=== PATIENT | female | born 1995 | race Caucasian/White ===

== ENCOUNTER 2021-05-17 21:40 | Inpatient (IN) | payer OTHER, BC, SELFPAY ==
[2021-05-17 22:11] VITALS: BMI 31.5
--- NOTE | 2021-05-17 22:13 | LDADM ---
This patient, Bettye Rodriguez, was admitted to Labor/Delivery/Recovery 107 on 05/17/21 at 21:40. Plans for labor, pain management and were discussed with patient. Patient/family oriented to hospital policies and general routines including ID bracelet, bed and alarms, visiting hours, pain management, procedures, bathroom and other care routines, personal items, smoking policy, room service/diet and guest tray routines, security routines, and visiting hours. Patient/Family are encouraged to report perceived risks to care and to ask questions if they do not understand what they are told or what they should do. See OBIX for further documentation.
[2021-05-17 22:38] VITALS: BP 132/87; PULSE 87
[2021-05-17 22:42] LABS: Basophils Percent Auto 0.3 % (0.2-1.2); Eosinophils Absolute Auto 0.1 K/mm3 (0-0.3); Hematocrit 35.4 % (37.0-47.0); Hemoglobin 11.9 g/dL (12.0-15.0); Immature Granulocyte Absolute 0.05 K/mm3 (0.00-0.031); Immature Granulocyte Percent A 0.4 % (0-0.5); Immature Platelet Fraction Pct 22.9 % (0.9-11.2); Lymphocytes Absolute Auto 3.23 K/mm3 (0.9-3.2); Lymphocytes Percent Auto 28.2 % (18.3-44.2); Mean Corpuscular HGB Conc 33.6 g/dl (32-36); Mean Corpuscular Hemoglobin 31.6 pg (26-34); Mean Corpuscular Volume 94.1 fl (80-100); Mean Platelet Volume 12.9 fl (7.4-10.4); Monocytes Absolute Auto 0.7 K/mm3 (0.1-0.6); Neutrophils Absolute Auto 7.3 K/mm3 (1.3-6.7); Neutrophils Percent Auto 64.1 % (45.5-73.1); Platelet Count Result 153 k/mm3 (150-375); Red Blood Count 3.76 M/mm3 (4.2-5.4); Red Cell Distribution Width 13.4 % (11.5-14.5); White Blood Count 11.5 K/mm3 (4.5-10.0)
[2021-05-17 22:46] VITALS: BP 129/88; PULSE 91
[2021-05-17] MEDS: miSOPROStol 25 MCG TABLET VAGINAL (22:48)
[2021-05-17 23:00] VITALS: TEMP 36.4
[2021-05-17 23:05] VITALS: BP 130/85; PULSE 74
[2021-05-17 23:31] VITALS: BP 128/87; PULSE 69
[2021-05-18] VITALS (116 sets, daily range): BP systolic 114–153; BP diastolic 64–102; PULSE 54–163; RESP 16–18; TEMP 36.1–37.3; O2SAT 98–100
[2021-05-18] MEDS: miSOPROStol 25 MCG TABLET VAGINAL (02:48)
--- NOTE | 2021-05-18 06:16 | WPDANESEPP ---
Anes - Eval Pre Procedure Procedure: labor epidural Date/Time: 05/18/21 06:16 Surgeon: sonny Pre Op Diagnosis: IOL Patient Data Age: 25 Gender: F Height: 1.57 m Weight: 78.25 kg Last Vital Signs Temp 36.1 C L 05/18/21 02:51 Pulse 55 L 05/18/21 06:01 BP 136/94 H 05/18/21 06:01 Allergies Allergy/AdvReac Type Severity Reaction Status Date / Time No Known Allergies Allergy Verified 04/29/21 13:44 Home Medications Medication Instructions Recorded Confirmed Type PNV cmb#95-ferrous fumarate-FA 1 tablet PO DAILY 04/29/21 04/29/21 History [] Laboratory Tests 05/17/21 05/17/21 05/17/21 22:32 22:32 22:32 WBC 11.5 K/mm3 H K/mm3 (4.5-10.0) RBC 3.76 M/mm3 L M/mm3 (4.2-5.4) Hgb 11.9 g/dL L g/dL (12.0-15.0) Hct 35.4 % L % (37.0-47.0) MCV 94.1 fl fl (80-100) MCH 31.6 pg pg (26-34) MCHC 33.6 g/dl g/dl (32-36) RDW 13.4 % % (11.5-14.5) Plt Count 153 k/mm3 k/mm3 (150-375) MPV 12.9 fl H fl (7.4-10.4) Immature Gran % (Auto) 0.4 % % (0-0.5) Neut % (Auto) 64.1 % % (45.5-73.1) Lymph % (Auto) 28.2 % % (18.3-44.2) [place] % (Auto) 6.0 % % (2.6-8.5) Eos % (Auto) 1.0 % % (0-4.4) Baso % (Auto) 0.3 % % (0.2-1.2) Lymph # (Auto) 3.23 K/mm3 H K/mm3 (0.9-3.2) [place] # (Auto) 0.7 K/mm3 H K/mm3 (0.1-0.6) Eos # (Auto) 0.1 K/mm3 K/mm3 (0-0.3) Baso # (Auto) 0.0 K/mm3 K/mm3 (0.0-0.1) Abs Immat Gran (auto) 0.05 K/mm3 H K/mm3 (0.00-0.031) Absolute Neuts (auto) 7.3 K/mm3 H K/mm3 (1.3-6.7) Absolute Nucleated RBC 0.0 K/mm3 K/mm3 (0.0-0.012) Nucleated RBC % 0.0 % % (0.0-0.2) % Immature Plt Fraction 22.9 % H % (0.9-11.2) RPR Pending Blood Type A Positive Antibody Screen Negative Patient hx anesthesia problems: none Family hx anesthesia problems: none PMFSH Family History Family History (Updated 04/29/21 @ 13:45 by Hakeem Hutchins RN) Father Hypertension Social History Social History Smoking status: Never smoker Second hand tobacco smoke exposure: No Substance use: never Gender identity (if verbalized by the patient): Female Sexual Orientation (if Verbalized by the Patient): Straight or Heterosexual Spiritual care concerns: No Exam Day of Procedure 05/18/21 06:16
[2021-05-18] MEDS: LACTATED RINGERS 1,000 ML 125 ML IV CONT ×2 (07:00→09:41)
[2021-05-18] MEDS: OXYTOCIN 30 UNITS/NS 500 ML 30 UNITS/500 ML BAG 6 UNITS IV CONT (07:01)
--- NOTE | 2021-05-18 07:02 | WPDHPUPDATE1 ---
History and Physical Update Update Date/Time: 05/18/21 07:02 25 yo G1 at 39w2d who presents for elective IOL. She endorses good FM. She denies any regular contractions, vaginal bleeding or leakage of fluid. Her has been uncomplicated thus far. History and Physical has been reviewed, including an updated exam of the patient. There are NO changes in the patient's condition. Risks, benefits, and alternatives have been discussed and questions answered. Patient agrees to proceed with procedure. 25 at 39w2d who presents for IOL admit to L&D routine admission orders Rh+ GBS neg cvx 1cm FHT cat 1 plan for cytotec IOL continuous EFM
[2021-05-18] MEDS: fentaNYL CITRATE INJ (*CRX) 100 MCG/2 ML VIAL 50 MCG IV PUSH (09:25)
--- NOTE | 2021-05-18 12:18 | PM.OBPRVD ---
OB - Delivery Note Procedure Procedure: Patient pushed for a spontaneous vaginal delivery. The head and anterior shoulder were delivered. At this time, the father of the baby was able to deliver the rest of the fetus. The fetus was delivered atraumatically and placed on the maternal abdomen. The cord was clamped and cut after 1 minute of life. The cord was double clamped and cut and a segment of cord was collected for cord gases. Cord blood was collected for blood type and Coomb's testing. The placenta delivered spontaneously and was noted to be intact. The perineum was inspected and there was a 1st degree perineal laceration as well as bilateral lena-urethral lacerations. The lacerations were repaired with 3-0 vicryl in the usual fashion. The uterus was firm and good hemostasis was noted. The patient and fetus were stable in the delivery room. Intrapartal events: None Induction method: per misoprostol protocol Delivery augmentation: pitocin Delivery monitor: external FHT and internal uterine Route of delivery: Episiotomy description: None Laceration Description: Periurethral and Perineal - 1st Degree Delivery repair: vicryl Specimen: No Quantitative Blood Loss (ml): 250 Anesthesia type: Epidural Disposition: floor () Complications: No immediate complications Baby Date of : 05/18/21 Time of : 12:05 Weeks of gestation at delivery: 39 Infant gender: Male Weight (pounds): 6 Weight (ounces): 14 presentation: vertex position: Right Occiput Anterior Placenta delivery description: Spontaneous cord vessel description: 3 Vessels score one minute: 8 score five minutes: 9
[2021-05-18] MEDS: OXYTOCIN 30 UNITS/NS 500 ML 30 UNITS/500 ML BAG 125 UNITS IV CONT (12:40)
[2021-05-18] MEDS: WITCH HAZEL 40 PADS 1 PAD TOPICAL (14:23)
[2021-05-18] MEDS: BENZOCAINE 20% AER SPR (*SP) 56 GM CAN 1 SPRAY TOPICAL (14:23)
[2021-05-19] VITALS: BP 110/72; PULSE 68; RESP 16; TEMP 36.8; O2SAT 99
[2021-05-19 04:30] VITALS: BP 120/79; PULSE 58; RESP 18; TEMP 36.3; O2SAT 100
[2021-05-19 05:17] LABS: Hematocrit 35.4 % (37.0-47.0); Hemoglobin 11.9 g/dL (12.0-15.0)
--- NOTE | 2021-05-19 07:31 | WPDANLDPN2 ---
Anes-Prog Note L&D Date/Time: 05/19/21 07:31 Comfortable throughout: labor Neuraxial method: epidural Epidural/Spinal procedure site: clean & non-tender Neuro status: Neuro function grossly intact. Cardiovascular status: normal Respiratory status: normal Airway patency: baseline Post-Op hydration status: normal Vital Signs: Last Vital Signs Temp 97.3 F L 05/19/21 04:30 Pulse 58 L 05/19/21 04:30 Resp 18 05/19/21 04:30 BP 120/79 05/19/21 04:30 Pulse Ox 100 05/19/21 04:30 Pain score (VAS): 1 I/O: Intake & Output 05/18/21 05/18/21 05/19/21 15:59 23:59 07:59 Intake Total 1500 Output Total 250 Balance 1250 Post-procedural complaints: none Patient feedback: Patient satisfied with anesthetic care.
--- NOTE | 2021-05-19 07:43 | PM.OBPNVD ---
OB - PN: Subj Subjective Date/time seen: 05/19/21 07:43 Patient comments: no complaints, pain well controlled and tolerating diet [place] feeding status: exclusively breast feeding Narrative: patient doing well this AM. No complaints. Pain is well controlled. She reports minimal bleeding. She is ambulating and voiding without difficulty. She is tolerating PO. She denies N/V, fever, chills. OB - PN: Obj Data Labs CBC & Chem 7: 05/19/21 04:42 Labs: Laboratory Results - last 24 hr 05/19/21 04:42 Hgb 11.9 L Hct 35.4 L OB - PN A/P Plan day: 1 Plan: routine care Comments: patient doing well H/H stable plan for infant circumcision today. Risks, benefits, alternatives discussed. Consent obtained continue routine care Time Spent With Patient Time: Total time spent is greater than 50% in coordination of care (as documented) at patient's floor/unit and/or counseling patient: Time with patient: less than 15 minutes Review of Systems Review of Systems: All systems reviewed & are unremarkable except as noted in HPI and below Exam Const: General: comfortable and no acute distress Resp: Effort & Inspection: normal respiratory effort Cardio: Rate: regular rate GI: GI Palp: Yes Soft to palpation and No Tenderness to palpation present (GI) Auscultation: normal bowel sounds Other: fundus firm and below umbilicus. Psych: Affect: normal affect
--- NOTE | 2021-05-19 07:44 | PM.OBDSVD ---
DS: Admitting Diagnosis Admitting Diagnosis intrauterine at term OB - DS: Summary OB Procedures : None OB Procedures Intrapartum: Spontaneous Vag Delivery OB Procedures: : None Status at Discharge Functional status at discharge: independent ambulation Overall status at discharge: patient is back to baseline Time Spent with Patient Time attestation: Total time spent providing and/or coordinating discharge services: Time spent: Less than 30 minutes Exam Const: General: comfortable and no acute distress Resp: Effort & Inspection: normal respiratory effort Auscultation: clear to auscultation bilaterally Cardio: Rate: regular rate GI: GI Palp: Yes Soft to palpation Auscultation: normal bowel sounds Other: Fundus firm below umbilicus Psych: Appearance: grossly normal Mental Status: mental status grossly normal Affect: normal affect DS: Data Data Completed and Pending Labs on day of discharge: Labs from last 24 hours 05/19/21 04:42 Hgb 11.9 L Hct 35.4 L Discharge Plan Discharge Discharging Clinician: Jeff Houston Patient Disposition: Home, Self-Care Activity: as tolerated and pelvic rest Diet: regular Patient Instructions: Antibiotic Form, Vaginal Delivery (DC) Stand Alone Forms: General Discharge Information Follow-up/Referrals: Jeff Houston MD [Physician] - 4 Weeks Discharge Medications: New ibuprofen 600 mg Tablet 600 mg PO Q6H PRN (Reason: Cramping) Qty: 30 RF: 0 Preparation H (Witch Priscilla) 50 % Pads, Medicated 1 pad topical PRN PRN (Reason: Perineal Discomfort) Qty: 12 RF: 0 acetaminophen [Mapap (acetaminophen)] 325 mg Tablet 650 mg PO Q6H PRN (Reason: Mild Pain (1-3) Or Headache) Qty: 30 RF: 0 Continued PNV cmb#95-ferrous fumarate-FA [] 28 mg iron- 800 mcg Tablet 1 tablet PO DAILY RF: 0 Date of admission: 05/17/21 21:40 Primary Care Provider: FlorinaTone Admitting Provider: Jeff Houston Attending physician on admission: Jeff Houston Condition: Stable
[2021-05-19 09:00] VITALS: PULSE 90; RESP 18; O2SAT 99
[2021-05-19] MEDS: IBUPROFEN 600 MG TABLET PO (09:00)
[2021-05-19] MEDS: MULTIVIT/MIN/PREN/FOL AC/IRON TABLET 1 TAB PO (09:00)
--- NOTE | 2021-05-19 09:15 | PC.NURSE ---
Mother called out for assist with feeding, reporting is sleepy and not waking for latch. Infant has been sleepy since 0100 with short periods of nursing. Parents are concerned with feeding status. Mother states her original plan was to pump and bottle feed, she felt was latching well and decided to breastfeed. Assured mother sleepiness normal for the first few days. Infant is able to freely thrust tongue past gum ridge and flange both lips. Skin is intact on both nipples, no redness and bruising noted. Discussed the near term and possible precautions of weak latch, sleepy feedings, needing to wake each feeding, inability to maintain latch and poor milk transfer which increases chance for increased weight loss, jaundice and low milk supply. Stressed the importance of adequate breast stimulation by pumping, self-expression and skin to skin. Reviewed feeding cues, frequencies, duration of feedings, feeding elimination flow sheet, and signs of adequate intake. Demonstrated stimulation techniques to wake for feeding. Assisted with infant to breast. Reviewed positioning/alignment in cross cradle, holding breast in ?U? hold and guided asymmetrical latch on. Discussed rational for each. Infant able to latch correctly. Reviewed signs of a correct latch, effective nursing and suck swallow ratio. nursed sleepily for short bursts with steady draws followed with long pausing. Reviewed the difference of effective vs ineffective nursing. Discussed is making good efforts and not effectively or making adequate milk transfer. Suggested mother stimulate while feeding to increase stimulation, increase intake and to assist with maintaining deep latch. Infant would respond to stimulation with short bursts of nursing. nursed aprox 10 minutes with a 25 minute attempt. Nipple care reviewed of lanolin after feedings, warm compresses as needed. Feeding plan will be to supplement 20 mls formula and mother will initiate pumping.
[2021-05-19 09:19] LABS: Rapid Plasma Reagin Non-Reactive (NonReactive)
[2021-05-19 09:50] VITALS: BP 126/82; PULSE 90; RESP 18; TEMP 36.4; O2SAT 99
--- NOTE | 2021-05-19 13:30 | PC.NURSE ---
Reviewed feeding cues, frequencies, duration of feedings, feeding elimination flow sheet, and signs of adequate intake. Demonstrated stimulation techniques to wake infant for feeding. Assisted with infant to breast. Reviewed positioning/alignment in cross cradle, holding breast in ?U? hold and guided asymmetrical latch on. Discussed rational for each. able to latch correctly. Reviewed signs of a correct latch, effective nursing and suck swallow ratio. Infant nursed sleepily for short bursts with steady draws followed with long pausing. Reviewed the difference of effective vs ineffective nursing. Discussed infant is making good efforts and not effectively or making adequate milk transfer. Suggested mother stimulate while feeding to increase stimulation, increase intake and to assist with maintaining deep latch. would respond to stimulation with short bursts of nursing. nursed aprox 5 minutes with a 20 minute attempt. Nipple care reviewed of lanolin after feedings, warm compresses as needed. Feeding plan will be to supplement 20 mls formula and mother pumping.
[2021-05-19] MEDS: TETANUS,DIPHTHERIA,AC PERTUSSIS ADULT (0.5 ML) BOOSTRIX IM (16:42)
[2021-05-19 18:45] VITALS: BP 119/79; PULSE 63; RESP 16; RESP 18; TEMP 36.6; O2SAT 99
[2021-05-20 07:40] VITALS: BP 130/75; PULSE 67; RESP 18; TEMP 36.6; O2SAT 100
[2021-05-20] MEDS: IBUPROFEN 600 MG TABLET PO (07:57)
[2021-05-20] MEDS: MULTIVIT/MIN/PREN/FOL AC/IRON TABLET 1 TAB PO (07:59)
[2021-05-20 08:00] VITALS: PULSE 63; RESP 16; O2SAT 99
--- NOTE | 2021-05-20 09:17 | PC.NURSE ---
Patient viewed the discharge video Mother & Baby Care, The First Two Weeks . Patient was given the opportunity and encouraged to ask questions. Patient verbalized understanding of information shared and has been given the mother/baby guide for home reference.
--- NOTE | 2021-05-20 09:45 | PC.NURSE ---
Consult with pt., mother states she has decided to pump and bottle feed. Worked with mother and her [employer] double electric pump for home use. Reviewed breast pump care and usage, pumping schedule, nipple care, and collection and storage of breast milk. Encouraged [id number], breast massage and manual expression to stimulate supply. Assessed patient for correct flange size, placement and draw. Patient verbalizes and demonstrates understanding of instructions. is bottle feeding as much as he desires per feeding without issue. Mother is feeding as required and waking infant to feed if needed. is currently meeting outcomes for weight, output, jaundice and feeding frequencies. Mother states she feels confident to continue current feeding plan at home. Reviewed transition to breast milk, signs of adequate intake, and engorgement/relief. Instructed to call ICP if intake/output less than required. Reviewed regular medications mother is taking. Information provided per Jenna. Reviewed community resources on the [facility] website and in the Mom/Baby guide. Information on outpatient services provided. Mother has no further questions at this time.
[2021-05-21 10:33] VITALS: BP 122/85; PULSE 89; RESP 16; TEMP 36.9; O2SAT 98
== END 2021-05-20 14:58 | disposition home or self-care (01) | DRG 807 ==
LOC: ANHLDR 21:56 → ANHOB2 05-18 15:11
PROVIDERS: Admitting Provider Student in an Organized Health Care Education/Training Program; PCP Physician Assistant; Visit Provider Student in an Organized Health Care Education/Training Program
DX: O76 Abnormality in fetal heart rate and rhythm complicating labor and delivery (principal); Z37.0 Single live birth; O71.82 Other specified trauma to perineum and vulva; Z3A.39 39 weeks gestation of pregnancy
CPT/HCPCS: 36415; 85014; 85018; 85025; 85055; 86592; 86850; 86900; 86901; 90715; A9270; J2590; J2795; J3010; J7120

== ENCOUNTER 2022-10-14 09:41 | Inpatient (IN) | payer OTHER, SELFPAY ==
[2022-10-14] VITALS (15 sets, daily range): BP systolic 94–133; BP diastolic 55–83; PULSE 60–109; RESP 16; TEMP 36.5–37.4; O2SAT 100; BMI 29.0
[2022-10-14 10:18] LABS: Basophils Percent Auto 0.4 % (0.2-1.2); Eosinophils Absolute Auto 0.1 K/mm3 (0-0.3); Eosinophils Percent Auto 0.6 % (0-4.4); Hematocrit 35.3 % (37.0-47.0); Hemoglobin 11.6 g/dL (12.0-15.0); Immature Granulocyte Absolute 0.06 K/mm3 (0.00-0.031); Immature Granulocyte Percent A 0.6 % (0-0.5); Lymphocytes Absolute Auto 3.57 K/mm3 (0.9-3.2); Lymphocytes Percent Auto 33.9 % (18.3-44.2); Mean Corpuscular HGB Conc 32.9 g/dl (32-36); Mean Corpuscular Hemoglobin 29.4 pg (26-34); Mean Corpuscular Volume 89.4 fl (80-100); Mean Platelet Volume 12.5 fl (7.4-10.4); Monocytes Absolute Auto 0.4 K/mm3 (0.1-0.6); Monocytes Percent Auto 4.2 % (2.6-8.5); Neutrophils Absolute Auto 6.4 K/mm3 (1.3-6.7); Neutrophils Percent Auto 60.3 % (45.5-73.1); Platelet Count Result 208 k/mm3 (150-375); Red Blood Count 3.95 M/mm3 (4.2-5.4); Red Cell Distribution Width 13.3 % (11.5-14.5); White Blood Count 10.5 K/mm3 (4.5-10.0)
[2022-10-14] MEDS: LACTATED RINGERS 1,000 ML 999 ML IV CONT ×2 (10:27→10:50)
--- NOTE | 2022-10-14 10:33 | LDADM ---
This patient, Bettye Rodriguez, was admitted to Labor/Delivery/Recovery 105 on 10/14/22 at 09:41. Plans for labor, pain management and were discussed with patient. Patient/family oriented to hospital policies and general routines including ID bracelet, bed and alarms, visiting hours, pain management, procedures, bathroom and other care routines, personal items, smoking policy, room service/diet and guest tray routines, security routines, and visiting hours. Patient/Family are encouraged to report perceived risks to care and to ask questions if they do not understand what they are told or what they should do. See OBIX for further documentation.
[2022-10-14] MEDS: OXYTOCIN 30 UNITS/NS 500 ML 30 UNITS/500 ML BAG 999 UNITS IV CONT (11:09)
--- NOTE | 2022-10-14 11:26 | WPDOBADMIT ---
Obstetrics - Admit Note Admission Note: record reviewed. Additions to the history and/or subsequent changes in the physical findings follow. 26 y/o at 39 1/7 weeks gestation here with contractions starting at 0530. Cervix 5 cm per RN at time of arrival, then 7 cm shortly thereafter. GBS neg. uncomplicated. AVSS NST reactive TOCO: contractions every 2-3 min ABD soft, nontender, gravid, vertex EXT nontender Cervix C/100. AROM with clear fluid. A: IUP at term with labor. P: Anticipate .
--- NOTE | 2022-10-14 11:30 | P.PCNOB_ITS ---
OB - Delivery Note Procedure Delivery date: 10/14/22 Procedure: Induction method: None Delivery monitor: External FHT and External Uterine Route of delivery: Laceration Description: Periurethral and Perineal - 1st Degree Delivery repair: vicryl (3-0) Specimen: Yes (cord blood) Quantitative Blood Loss (ml): 180 Anesthesia type: Local (1% lidocaine) Disposition: PACU Complications: None Narrative: 26 y/o at 39 1/7 weeks gestation who presented to the hospital with contractions. Labor was diagnosed. Her cervix progressed and dilated completely. Amniotomy was performed with return of clear fluid. She pushed with good effort and delivered the infant's head to the perineum. A loose nuchal cord was splinted and the body delivered. The nose and mouth were bulb suctioned. The nuchal cord was reduced. After a delay, the cord was clamped and cut. The was handed off the field. Cord blood was collected. The placenta delivered spontaneously and was grossly normal in appearance. The usual 3 vessel cord was noted. A first degree midline perineal laceration was sustained, as well as a shallow left sided periurethral laceration. The per ineum was infiltrated with 6 mL 1% lidocaine and reapproximated using 3 0 Vicryl in interrupted fashion. The shallow periurethral laceration was not bleeding and did not require repair. Excellent hemostasis resulted as did excellent reapproximation of the normal anatomy. Needle and instrument counts were correct. The patient was taken to recovery room in stable condition. The went to the nursery in stable condition. I was present and scrubbed for the entire delivery. [place] Baby Date of : 10/14/22 Time of : 11:06 Weeks of gestation at delivery: 39 Infant gender: Female Weight (pounds): 6 Weight (ounces): 2 presentation: vertex position: Right Occiput Anterior Placenta delivery description: Spontaneous and Normal Configuration Cord Vessel Description: 3 Vessels and Delayed Cord Clamping score one minute: 9 score five minutes: 9
--- NOTE | 2022-10-14 11:36 | P.DS_ITS ---
DS: Admitting Diagnosis Discharge Date 10/15/22 Admitting Diagnosis IUP at 39 1/ Labor DS: Discharge Diagnosis Discharge Diagnosis (1) (normal spontaneous vaginal delivery): Code(s): O80 - Encounter for full-term uncomplicated delivery Status: Acute OB - DS: Summary OB Procedures : None OB Procedures Intrapartum: Spontaneous Vag Delivery OB Procedures: : None Time Spent with Patient Time attestation: Total time spent providing and/or coordinating discharge services: DS: Data Data Completed and Pending Labs on day of discharge: Labs from last 24 hours 10/14/22 10/14/22 10/14/22 10:08 10:08 10:08 WBC 10.5 H RBC 3.95 L Hgb 11.6 L Hct 35.3 L MCV 89.4 MCH 29.4 MCHC 32.9 RDW 13.3 Plt Count 208 MPV 12.5 H Immature Gran % (Auto) 0.6 H Neut % (Auto) 60.3 Lymph % (Auto) 33.9 [place] % (Auto) 4.2 Eos % (Auto) 0.6 Baso % (Auto) 0.4 Lymph # (Auto) 3.57 H [place] # (Auto) 0.4 Eos # (Auto) 0.1 Baso # (Auto) 0.0 Abs Immat Gran (auto) 0.06 H Absolute Neuts (auto) 6.4 Absolute Nucleated RBC 0.0 Nucleated RBC % 0.0 RPR Pending Blood Type A Positive Antibody Screen Negative Discharge Plan Discharge Attending physician on discharge: Reid Parry Discharging Clinician: Reid Parry Patient Disposition: Home, Self-Care Activity: pelvic rest Diet: regular Discharge Instructions: Call or return if temperature above 100.4? F, increased abdominal pain, increased vaginal bleeding or any new problems. Stand Alone Forms: General Discharge Information Follow-up/Referrals: Reid Parry MD [Physician] - 6 Weeks Discharge Medications: New ibuprofen 600 mg tablet 600 mg PO Q6H PRN (Reason: cramps) Qty: 30 0RF Continued PNV cmb#95-ferrous fumarate-FA [] 28 mg iron- 800 mcg Tablet 1 tablet PO DAILY acetaminophen [Mapap (acetaminophen)] 325 mg Tablet 650 mg PO Q6H PRN (Reason: Mild Pain (1-3) Or Headache) Qty: 30 0RF Date of admission: 10/14/22 09:41 Primary Care Provider: MarjorieClementine Admitting Provider: Reid Parry Attending physician on admission: Reid Parry Condition: Stable
[2022-10-14] MEDS: OXYTOCIN 30 UNITS/NS 500 ML 30 UNITS/500 ML BAG 125 UNITS IV CONT (11:48)
[2022-10-14] MEDS: IBUPROFEN 600 MG TABLET PO (13:25)
[2022-10-14] MEDS: WITCH HAZEL 40 PADS 1 PAD TOPICAL (13:26)
[2022-10-14] MEDS: BENZOCAINE 20% AER SPR (*SP) 56 GM CAN 1 SPRAY TOPICAL (13:26)
--- NOTE | 2022-10-14 17:44 | OBPPTRN ---
1645-Patient transferred to post room #282 via wheelchair. Support person present. Oriented to unit, room, information board, rooming in, admission packet and security measures. Patient verbalizes understanding.
[2022-10-15 05:00] VITALS: BP 117/87; PULSE 72; RESP 16; TEMP 36.2; O2SAT 98
[2022-10-15] MEDS: IBUPROFEN 600 MG TABLET PO (05:02)
[2022-10-15 07:03] LABS: Hematocrit 34.2 % (37.0-47.0); Hemoglobin 10.9 g/dL (12.0-15.0)
[2022-10-15 08:00] VITALS: BP 111/75; PULSE 90; RESP 16; TEMP 36.8; O2SAT 99
[2022-10-15] MEDS: DOCUSATE SODIUM 100 MG CAPSULE PO (11:09)
--- NOTE | 2022-10-15 14:02 | PM.OBPNVD ---
OB - PN: Subj Subjective Date/time seen: 10/15/22 14:02 Narrative: Pain OK. Would like to go home. OB - PN: Obj Data Labs 10/15/22 05:07 Labs: Laboratory Results - last 24 hr 10/15/22 05:07 Hgb 10.9 L Hct 34.2 L OB - PN A/P Plan Comments: A: PPD#1, doing well. P: Home to f/u 6 weeks. Exam Psych: Other: AVSS ABD soft, nontender, fundus firm EXT nontender
--- NOTE | 2022-10-15 15:05 | PC.NURSE ---
Patient was given the opportunity to view the discharge video Mother & Baby Care, The First Two Weeks and to ask questions. Patient declined viewing the video and has been given the mother/baby guide for home reference.
[2022-10-16 09:20] VITALS: BP 118/70; PULSE 62; RESP 18; TEMP 36.7; O2SAT 99
[2022-10-16 10:51] LABS: Rapid Plasma Reagin Non-Reactive (NonReactive)
== END 2022-10-15 16:08 | disposition home or self-care (01) | DRG 807 ==
LOC: ANHLDR 11:37 → ANHOB2 16:54
PROVIDERS: Admitting Provider Obstetrics & Gynecology; PCP Physician Assistant; Visit Provider Obstetrics & Gynecology
DX: O69.81X0 Labor and delivery complicated by cord around neck, without compression, not applicable or unspecified (principal); Z37.0 Single live birth; O70.0 First degree perineal laceration during delivery; Z3A.39 39 weeks gestation of pregnancy
CPT/HCPCS: 36415; 85014; 85018; 85025; 86592; 86850; 86900; 86901; A9270; J2590; J2795; J7120